=== PATIENT | female | born 1940 | race Two or more races ===

== ENCOUNTER 2018-12-17 05:04 | Day surgery (SDC) | payer OTHER ==
[2018-12-14 18:07] VITALS: BMI 20.4
[2018-12-17] MEDS ORDERED: MIDAZOLAM HCL 2 MG/2 ML SINGLE DOSE VIAL ONE (08:27)
[2018-12-17] MEDS ORDERED: fentaNYL CITRATE 250 MCG/5 ML VIAL ONE (08:27)
[2018-12-17] MEDS ORDERED: ROCURONIUM BROMIDE 50 MG/5 ML VIAL ONE (08:27)
--- NOTE | 2018-12-17 08:50 | HP ---
History & Physical Update - Physical Physical: No Change - Assessment Assessment: No Change - Plan Plan: No Change (Patient is having nausea, and fatty food intolerancefor one month, Ultrasound of abdomen showed gallatones. Symptomatic gallstones. Plan : laparoscopic cholecystectomy, possible open.)
[2018-12-17] MEDS ORDERED: oxyCODONE HCL 5 MG TABLET PO PRN (09:35)
[2018-12-17] MEDS ORDERED: ONDANSETRON 4 MG/2 ML VIAL IVPUSH PRN (09:35)
[2018-12-17] MEDS ORDERED: LACTATED RINGERS SOLUTION 1,000 ML IV SCH (09:45)
[2018-12-17] MEDS ORDERED: ceFAZolin SODIUM 1 GM VIAL IVPB ONE (09:50)
[2018-12-17] MEDS ORDERED: BUPIVACAINE HCL/PF (5 MG/ML) 30 ML VIAL IJ ONE ×3 (10:26→10:55)
[2018-12-17] MEDS ORDERED: NEOSTIGMINE METHYLSULFATE 0.5 MG/1 ML - 10 ML MDV ONE (10:46)
--- NOTE | 2018-12-17 11:10 | OP ---
Operative Note - Note: Operative Date: 12/17/18 Pre-Operative Diagnosis: Cholelithiasis, chronic cholecystitis. Operation: Laparoscopic cholecystectomy, lysis of omental adhesions to anterior abdominal wall. Findings: Cholelithiasis, omental adhesions to anterior abdominal wall from prior surgery. Post-Operative Diagnosis: Other (Cholelithiaisis, omental adhesions to anterior abdominal wall.) Surgeon: Balta Cardenas Geotechnical Operating Engineer: Vinnie Lewis Anesthesia: General Specimens Removed: Gallbladder Estimated Blood Loss (mls): 10 Operative Report Dictated: Yes
[2018-12-17] MEDS ORDERED: GLYCOPYRROLATE 0.2 MG/1 ML VIAL ONE (11:17)
[2018-12-17] MEDS ORDERED: GLYCOPYRROLATE 1 MG/5 ML VIAL IVPB ONE (11:30)
[2018-12-17] MEDS ORDERED: ONDANSETRON 4 MG/2 ML VIAL ONE (13:03)
--- NOTE | 2018-12-17 13:23 | SURG ---
Surgery Bulk Sausage Casing Tier Off Note Bulk Sausage Casing Tier Off: Vinnie Lewis MD Date of Service: 12/17/18 Diagnosis: cholelithiasis/chronic cholecystitis Procedure: laparoscopic cholecystectomy and laparoscopic lysis of abdominal wall adhesions I was present for the entirety of the operative procedure. For further detail, please refer to operative report.
--- NOTE | 2018-12-17 13:26 | OP ---
DATE OF OPERATION: 12/17/2018 PREOPERATIVE DIAGNOSIS: Cholelithiasis with chronic cholecystitis. POSTOPERATIVE DIAGNOSIS: Cholelithiasis with chronic cholecystitis with omental adhesions to anterior abdominal wall. OPERATIVE PROCEDURE: Laparoscopic cholecystectomy and lysis of omental adhesions to the anterior abdominal wall. SURGEON: Jaimee Cardenas MD CUSTOMER SERVICE COORDINATOR: Dr. Lewis. ANESTHESIA: General anesthesia. OPERATIVE DESCRIPTION: This 78-year-old woman had chronic back pain and right upper quadrant pain associated with nausea. She was found to have gallstones. The patient was brought in for laparoscopic cholecystectomy. Risks, benefits, and complications have been discussed with the patient. The patient had previous abdominal surgery. Consent was obtained. The patient was brought to the operating room. General anesthesia was administered. The abdomen was painted and draped. An incision was made in the infraumbilical portion of the umbilicus, which was deepened through the skin and subcutaneous tissue, and the midline linea alba was incised. A suture was noted at the incision site. Two stay sutures of 2-0 Vicryl were obtained on either side of the midline, and a 10- to 12-mm laparoscopic trocar of the Shannon type was introduced into the abdominal cavity. The abdomen was insufflated with carbon dioxide at 6 L/min with maximum intra-abdominal pressure of 15 mmHg. A 5-mm trocar was inserted in the midline in the subxiphoid area. This was noted to enter the abdominal cavity to the right upper falciform ligament. The camera was then switched to the subxiphoid port. It was noted that there were omental adhesions all around the midline, and the omental adhesions to the anterior abdominal wall had to be lysed to visualize the trocar to the right of the midline. This was done using harmonic scalpel, blunt dissection, as well as electrocautery. When the trocar was visualized free into the abdominal cavity, further introduction of the lateral two 5-mm ports was done in the right upper quadrant, one around the midclavicular line and another along the anterior axillary line. Both were noted entering the abdominal cavity under direct vision of the camera. The gallbladder was then visualized and grasped at the fundus and retracted cephalad and laterally. The grasper that was used, was through the lateral 5-mm port around the anterior axillary line. Once the gallbladder was retracted cephalad and laterally, the infundibulum of the gallbladder was grasped , with a grasper through the medial 5-mm port, and retracted inferiorly and laterally, thus exposing the peritoneal reflection around the cystic duct. and the Calot triangle. as well as the critical view. With an Endo Shear through the subxiphoid port, the peritoneal reflection around the cystic duct was incised, and the cystic duct and cystic artery were isolated circumferentially. These were then divided between clips. The peritoneal reflection on either side of the gallbladder was then incised. The gallbladder was dissected off the gallbladder bed all the way to the fundus of the gallbladder. The cholecystectomy was, thus, accomplished. Hemostasis was achieved as the dissection proceeded. An EndoCatch was then introduced through the umbilical port. The camera was then switched to the subxiphoid port. The gallbladder was placed in the EndoCatch and retrieved out of the abdominal cavity with a large stone within the gallbladder. A 4 x 4 dauze,was then introduced through the abdominal port and placed in the gallbladder bed, to visualize the gallbladder fossa. There was no bleeding. All small bleeders were cauterized with electrocautery. The 4 x 4 was then removed from the abdominal cavity. The gallbladder fossa and right upper quadrant were then thoroughly irrigated with normal saline. All fluid return was clear. The fluid was all evacuated. Hemostasis was satisfactory. The instruments were then withdrawn under direct vision. The linea alba in the midline at the umbilicus was approximated with interrupted [id number] 2-0 Vicryl sutures. Marcaine 0.5% was injected into the wound. The skin was reapproximated with buried interrupted 4-0 Monocryl sutures. Estimated blood loss was between 5-10 mL. The patient tolerated the procedure well, was extubated, and sent to the recovery room in satisfactory and stable condition. Maxime [id number] MTDD
[2018-12-17] MEDS ORDERED: DEXAMETHASONE SOD PHOSPHATE 4 MG/1 ML VIAL ONE (13:43)
[2018-12-17] MEDS ORDERED: DEXAMETHASONE SOD PHOSPHATE 4 MG/1 ML VIAL IVPUSH ONE ×2 (13:45→13:51)
[2018-12-17] MEDS ORDERED: FAMOTIDINE 20 MG/50 ML IVPB 20 MG/50 ML MG IVPB ONE ×2 (13:48→13:52)
[2018-12-17] MEDS ORDERED: FAMOTIDINE 20 MG PREMIXED IVPB IVPB ONE (13:50)
[2018-12-17] MEDS ORDERED: METOCLOPRAMIDE HCL INJECTION 10 MG/2 ML VIAL ONE (14:56)
[2018-12-17] MEDS ORDERED: METOCLOPRAMIDE HCL INJECTION 10 MG/2 ML VIAL IVPUSH ONE ×2 (15:00→15:34)
[2018-12-17 16:14] VITALS: TEMP 98.5
[2018-12-17 16:32] VITALS: BP 144/63; PULSE 66
--- NOTE | 2018-12-21 13:08 | PATH ---
Surgical Pathology Report Patient Name: JAVIER HINKLE [facility]. Rec. #: [id number] /Age/Gender: 1940 (Age: 78) / F Account: [id number] Location: [facility] SURGICAL Taken: 12/17/2018 Received: 12/17/2018 Reported: 12/20/2018 Physicians: Jaimee Cardenas M.D. Specimen(s) Received GALLBLADDER Clinical History Cholelithiasis and cholecystitis Final Diagnosis GALLBLADDER, LAPAROSCOPIC CHOLECYSTECTOMY: CHRONIC CHOLECYSTITIS WITH CHOLELITHIASIS. Electronically Signed Margie Cruz M.D. Gross Description Received in formalin, labeled "gallbladder," is a 5.5 x 3.5 x 1.5 cm. gallbladder with a 0.7 cm. in length portion of cystic duct attached. The outer surface pink-emanuel and varies from smooth to shaggy. The lumen contains 2 ovoid green choleliths measuring 1.8 and 2 cm in greatest dimension. The mucosa is emanuel and focally eroded. The wall of the gallbladder measures 0.1 cm. in thickness. System Programmer sections are submitted in one cassette. MLSZ/12/17/2018 sanml/12/17/2018
== END 2018-12-17 16:30 | disposition home or self-care (01) ==
LOC: JASU-SURG 05:04
PROVIDERS: ATTEND Specialist
PROC: 0FT44ZZ Resection of Gallbladder, Percutaneous Endoscopic Approach (ICD-10-PCS; principal; 2018-12-17 09:30)
DX: K80.10 Calculus of gallbladder with chronic cholecystitis without obstruction (principal); K66.0 Peritoneal adhesions (postprocedural) (postinfection)
CPT/HCPCS: 88304-TC; 94760

== ENCOUNTER 2023-02-05 09:56 | Observation (INO) | payer OTHER ==
[2023-02-05] MEDS ORDERED: SODIUM CHLORIDE 0.9% 1000 ML INFUS.BAG IV ONE (11:13)
[2023-02-05 11:46] LABS: BASO % 0.2 % (0-2.0); EOS % 0.2 % (0-4.5); HEMATOCRIT 44.7 % (32.4-45.2); LYMPH % 12.1 % (8-40); MCH 32.6 pg (25.7-33.7); MCHC 33.6 g/dl (32.0-36.0); MEAN CELL VOLUME 96.8 fl (80-96); MEAN PLT VOLUME 8.4 fl (7.5-11.1); NEUT % 82.5 % (42.8-82.8); PLATELET COUNT 308 10^3/uL (134-434); RBC 4.61 M/mm3 (3.60-5.2); RDW 13.4 % (11.6-15.6); WHITE BLOOD COUNT 13.5 K/mm3 (4.0-10.0)
[2023-02-05 11:53] LABS: INR 1.03 (0.83-1.09)
[2023-02-05 11:56] LABS: ACTIVATED PTT 26.1 SECONDS (25.2-36.5)
[2023-02-05 11:58] LABS: EPI CELLS >36 /uL (0-25.1); HYALINE CASTS 34 /uL (0-3.1); PH,URINE 5.5 (5.0-8.0); URINE APPEARANCE CLOUDY; URINE BACTERIA 36 /uL (0-1359); URINE BILIRUBIN 1+ (NEGATIVE); URINE COLOR DK YELLOW; URINE GLUCOSE (UA) NEGATIVE (NEGATIVE); URINE KETONE 1+ (NEGATIVE); URINE LEUK ESTERASE 2+ (NEGATIVE); URINE NITRITE NEGATIVE (NEGATIVE); URINE PROTEIN 1+ (NEGATIVE); URINE WBC 274 /uL (0-25.8)
[2023-02-05 12:03] LABS: URINE RBC 32.1 /uL (0-23.9)
[2023-02-05] MEDS ORDERED: CEFTRIAXONE 1,000 MG in DEXTROSE 5%-WATER - 50 ML IVPB ONE (12:04)
[2023-02-05 12:06] LABS: POTASSIUM 4.6 mmol/L (3.5-5.1)
[2023-02-05 12:09] LABS: ALBUMIN 3.5 g/dl (3.4-5.0); BLOOD UREA NITROGEN 22.6 mg/dL (7-18)
[2023-02-05 12:11] LABS: CREATININE 0.9 mg/dL (0.55-1.3)
[2023-02-05 12:13] LABS: TOT PROT 8.2 g/dl (6.4-8.2)
[2023-02-05 12:14] LABS: BILIRUBIN,TOTAL 0.6 mg/dL (0.2-1)
[2023-02-05] MEDS ORDERED: CEFTRIAXONE 1 GM/50 ML BAG ONE (12:21)
[2023-02-05] MEDS ORDERED: SODIUM CHLORIDE 1,000 ML IV SCH (15:00)
[2023-02-05 17:48] VITALS: BMI 19.1
[2023-02-05 21:00] VITALS: RESP 20
[2023-02-06 07:50] LABS: BASO % 0.3 % (0-2.0); EOS % 0.8 % (0-4.5); HEMATOCRIT 34.5 % (32.4-45.2); HEMOGLOBIN 11.5 GM/dL (10.7-15.3); MCH 32.9 pg (25.7-33.7); MCHC 33.3 g/dl (32.0-36.0); MEAN CELL VOLUME 98.7 fl (80-96); MEAN PLT VOLUME 9.5 fl (7.5-11.1); MONO % 7.8 % (3.8-10.2); NEUT % 66.1 % (42.8-82.8); PLATELET COUNT 225 10^3/uL (134-434); RDW 13.4 % (11.6-15.6)
[2023-02-06 08:00] LABS: POTASSIUM 4.6 mmol/L (3.5-5.1)
[2023-02-06 08:05] LABS: BLOOD UREA NITROGEN 23.1 mg/dL (7-18); CALCIUM 8.6 mg/dL (8.5-10.1); MAGNESIUM 1.7 mg/dL (1.8-2.4)
[2023-02-06 08:07] LABS: PHOSPHOROUS 3.9 mg/dL (2.5-4.9)
[2023-02-06 08:09] LABS: CREATININE 0.8 mg/dL (0.55-1.3)
[2023-02-06 08:10] LABS: BILIRUBIN,TOTAL 0.8 mg/dL (0.2-1); TOT PROT 6.3 g/dl (6.4-8.2)
[2023-02-06 08:13] LABS: ALBUMIN 2.8 g/dl (3.4-5.0)
[2023-02-06] MEDS ORDERED: MAGNESIUM SULF 50% (8.12 MEQ/2 ML-1 GM VIAL) IVPB ONE ×2 (09:35→11:15)
[2023-02-06] MEDS ORDERED: NIFEdipine E.R 60 MG TABLET PO SCH ×3 (10:00→12:00)
[2023-02-06] MEDS ORDERED: ENOXAPARIN NA (PORCINE) 40 MG/0.4 ML DISP.SYRIN SQ SCH (10:00)
[2023-02-06] MEDS ORDERED: LISINOPRIL 20 MG TABLET PO SCH (10:00)
[2023-02-06] MEDS ORDERED: metoPROLOL SUCCINATE 25 MG TAB.SR.24H (FP) PO SCH ×2 (10:00)
[2023-02-06] MEDS ORDERED: NIFEdipine E.R. 30 MG TABLET PO SCH (10:10)
[2023-02-06] MEDS ORDERED: CEFTRIAXONE 1 GM in DEXTROSE 5%-WATER - 50 ML IVPB SCH (10:15)
[2023-02-06 15:10] VITALS: PULSE 76; TEMP 98
[2023-02-06 15:21] VITALS: BP 148/76
== END 2023-02-06 19:39 | disposition home or self-care (01) ==
LOC: JER 09:56 → JERBED 14:04 → J4W 15:47
PROVIDERS: ADMIT Internal Medicine; ATTEND Internal Medicine
PROC: 3E03329 Introduction of Other Anti-infective into Peripheral Vein, Percutaneous Approach (ICD-10-PCS; principal; 2023-02-05)
PROC: 3E023GC Introduction of Other Therapeutic Substance into Muscle, Percutaneous Approach (ICD-10-PCS; 2023-02-05)
PROC: 3E033GC Introduction of Other Therapeutic Substance into Peripheral Vein, Percutaneous Approach (ICD-10-PCS; 2023-02-05)
PROC: 3E0337Z Introduction of Electrolytic and Water Balance Substance into Peripheral Vein, Percutaneous Approach (ICD-10-PCS; 2023-02-05)
DX: N39.0 Urinary tract infection, site not specified (principal); G30.1 Alzheimer's disease with late onset; D72.829 Elevated white blood cell count, unspecified; I95.1 Orthostatic hypotension; F02.80 Dementia in other diseases classified elsewhere, unspecified severity, without behavioral disturbance, psychotic disturbance, mood disturbance, and anxiety; I10 Essential (primary) hypertension; R51.9 Headache, unspecified; R25.1 Tremor, unspecified
CPT/HCPCS: 36415; 70450-TC; 71045-TC-FY; 80053; 81003; 82962; 83605; 83690; 83735; 84100; 84484; 85025; 85610; 85730; 87086; 93005; 93010; 96361; 96365; 96366; 96372; 96375; 99285-25; G0378